=== PATIENT | male | born 2000 | race Caucasian/White ===

== ENCOUNTER 2021-05-17 19:08 | Emergency (ER) | payer OTHER, SELFPAY ==
--- NOTE | ~2021-05-17 | CT_ITS ---
EXAMINATION: CT orbit BI wo con EXAM DATE: 05/17/2021 21:33 INDICATION: Metal, in eye, dizziness, blurred vision. TECHNIQUE: Spiral CT orbit BI wo con was performed without contrast. Axial, coronal and sagittal im ages were reviewed. The dose-length product (DLP) for this examination was 199.48 mGy-cm. The expos ure was tailored according to patient size (auto mA exposure control), and iterative reconstruction ( ASIR) was used as additional dose reduction technique. There is no prior study for comparison. FINDINGS: There is swelling overlying the frontal bone. No radiopaque foreign bodies identified. Disc onjugate gaze, orbits otherwise unremarkable. Extraocular muscles are symmetric. There may be old chapo al bone fractures. Sinuses and mastoid air cells are well aerated. IMPRESSION: Frontal scalp swelling. No foreign body or retrobulbar inflammation. Reviewed, dictated and finalized at location A. ON SITE IMPRESSION: Frontal scalp swelling. No foreign body or retrobulbar inflammatio n.
[2021-05-17 19:11] VITALS: BP 148/58; PULSE 81; RESP 20; TEMP 36.9; O2SAT 99
--- NOTE | 2021-05-17 20:38 | ECG_ITS ---
Measurements Intervals [place] Rate: 66 P: 33 TX: 147 QRS: 61 QRSD: 90 T: 44 QT: 413 QTc: 434 Interpretive Statements SINUS RHYTHM MINIMAL Q WAVES- ANTEROLATERAL LEADS BORDERLINE ECG Electronically Signed On 05-18-2021 7:51:04 CRYPTOLOGIC TECHNICIAN OPERATOR/ANALYST by Blayne Warner D.O.
--- NOTE | 2021-05-17 21:01 | ED.EYEPROB ---
HPI - Eye Problem General Chief complaint: Eye Problems Stated complaint: Eye pain Time Seen by Provider: 05/17/21 20:27 Source: patient and RN notes reviewed Mode of arrival: ambulatory Limitations: no limitations History of Present Illness HPI Narrative: This is a 20 year old male who presents for evaluation of left eye pain, headache, facial swelling . Patient reports 2 days ago he was grinding tile and metal with out eye protection. He felt like he has something in his left eye but he thought it would come out on its own. He noticed more blurred vision, headache with nausea. He also states he has felt off and may have passed out while driving. He does not wear glasses or contacts. He is unsure of his last tetanus. He has light sensitivity. He also noticed today he has a wound to his left forehead with left forehead swelling and tenderness. Related Data Allergies Allergy/AdvReac Type Severity Reaction Status Date / Time azithromycin [From Zithromax] Allergy Unknown Unknown Verified 05/17/21 19:15 Review of Systems Review of Systems: All systems reviewed & are unremarkable except as noted in HPI and below PMFSH Past Medical History Medical History (Updated 05/18/21 @ 00:27 by Leandra Mandel MD) Patient denies medical problems Surgical History Surgical History (Updated 05/17/21 @ 21:07 by Leandra Mandel MD) No pertinent past surgical history Social History Social History (Updated 05/17/21 @ 21:07 by Leandra Mandel MD) Smoking status: Never smoker Exam Const: General: no acute distress and alert Orientation/consciousness: patient oriented x3 HENMT: Head: normocephalic Face and sinus: face symmetric and other (left forehead swelling with redness) Mouth: Yes Normal oral and palatal mucosa present, Yes lip normal, Yes oropharynx normal and Yes moist mucous membranes Throat: posterior oropharynx normal, tonsils normal and uvula midline Eyes: Eyelids: eyelid abnormality Conjunctivae: conjunctival abnormality left conjunctival injection Cornea: corneas abnormal on the left foreign body (just above pupil metal) Pupils: Equal, round and reactive pupils present EOM: EOMs intact bilaterally Other: right eye visual acuity 20/20 , left eye 20/25 right intraocular pressure 7 , left eye 10 Resp: Effort & Inspection: normal respiratory effort and no retractions Auscultation: clear to auscultation bilaterally Cardio: Rate: regular rate Rhythm: regular rhythm Heart sounds: no murmurs GI: GI Palp: Yes Soft to palpation, No Tenderness to palpation present (GI) and No Guarding due to palpation present (GI) Auscultation: normal bowel sounds Skin: Other: left forehead with punctate wound with surround swelling and erythema Neuro: General: patient oriented x3, moves all extremities and CN's II-XI intact bilaterally Gait exam (Neuro): Normal gait present Extrem: General: normal to inspection and no pedal edema Psych: Mental Status: mental status grossly normal Affect: normal affect Course Reevaluation(s) Reevaluation #1: I Discussed with patient that I did not see any metal or FB in eye. He does have rust ring. I stressed importance of treatment of this and follow up . He is going to follow up with [facility] ophthalmology in clinic. He was given return precautions. Date: 05/18/21 Time: 00:16 Consultations Consultation #1: I Spoke with Dr. Jarod Bustillo of ophthalmology at [facility]. He states to attempt to remove rust ring, check intraocular pressure, corneal leak. erythromycin and cipro drops Date: 05/17/21 Time: 22:26 Date: 05/18/21 Time: 00:18 Vital Signs Vital signs: Vital Signs Temperature 98.5 F 05/17/21 19:11 Pulse Rate 81 05/17/21 19:11 Respiratory Rate 20 05/17/21 19:11 Blood Pressure 148/58 H 05/17/21 19:11 Pulse Oximetry 99 05/17/21 19:11 Temperature 98.5 F 05/17/21 19:11 Pulse Rate 70 05/18/21 00:51 Respiratory Rate 16 05/18/21 00:51 Blood Pressure
[2021-05-17] MEDS: TETANUS,DIPHTHERIA,AC PERTUSSIS ADULT (0.5 ML) BOOSTRIX IM (21:14)
[2021-05-17] MEDS: ONDANSETRON INJ 4 MG/2 ML VIAL IV PUSH (21:14)
[2021-05-17] MEDS: SODIUM CHLORIDE 0.9% IV 1,000 ML 999 ML IV CONT (21:14)
[2021-05-17 21:35] LABS: Basophils Absolute Auto 0.1 K/mm3 (0.0-0.1); Basophils Percent Auto 0.6 % (0.2-1.2); Eosinophils Absolute Auto 0.4 K/mm3 (0-0.3); Eosinophils Percent Auto 3.3 % (0-4.4); Hematocrit 44.7 % (42.0-52.0); Hemoglobin 15.4 g/dL (14.0-18.0); Immature Granulocyte Absolute 0.03 K/mm3 (0.00-0.031); Immature Granulocyte Percent A 0.3 % (0-0.5); Lymphocytes Absolute Auto 2.29 K/mm3 (0.9-3.2); Lymphocytes Percent Auto 21.3 % (18.3-44.2); Mean Corpuscular HGB Conc 34.5 g/dl (32-36); Mean Corpuscular Hemoglobin 29.8 pg (26-34); Mean Corpuscular Volume 86.5 fl (80-100); Mean Platelet Volume 10.5 fl (7.4-10.4); Monocytes Absolute Auto 1.1 K/mm3 (0.1-0.6); Monocytes Percent Auto 9.9 % (2.6-8.5); Neutrophils Percent Auto 64.6 % (45.5-73.1); Platelet Count Result 290 k/mm3 (150-375); Red Blood Count 5.17 M/mm3 (4.6-6.20); Red Cell Distribution Width 12.8 % (11.5-14.5); White Blood Count 10.8 K/mm3 (4.5-10.0)
[2021-05-17 21:47] LABS: Alanine Aminotransferase 19 U/L (4-50); Albumin Level 4.9 g/dL (3.5-5.1); Alkaline Phosphatase 71 U/L (38-126); Anion Gap 9 mmol/L (8-16); Aspartate Amino Transferase 25 U/L (17-59); Bilirubin,Total 0.6 mg/dL (0.2-1.3); Blood Urea Nitrogen 15 mg/dL (9-20); Calcium 9.8 mg/dL (8.4-10.2); Carbon Dioxide 26 mmol/L (22-30); Chloride 103 mmol/L (98-107); Estimated CRCL calculation 119 ml/min; Estimated Glomerular Filt Rate > 60; Glucose 96 mg/dL (65-110); Sodium 138 mmol/L (137-145)
[2021-05-17] MEDS: CEPHALEXIN 500 MG CAPSULE PO (22:16)
[2021-05-17] MEDS: CIPROFLOXACIN HCL 0.3% OP SOLN 2.5 ML BTL 2 DROP LEFT EYE (22:58)
[2021-05-18] MEDS: POLYMYXIN/TRIMETHOPRIM OPHTH 10 ML DROPS 1 DROP LEFT EYE (00:47)
[2021-05-18 00:51] VITALS: BP 138/95; PULSE 70; RESP 16; O2SAT 100
== END 2021-05-18 00:52 | disposition home or self-care (01) ==
PROVIDERS: Emergency Provider General Practice; PCP Pediatrics Adolescent Medicine
DX: L03.211 Cellulitis of face (principal); T15.02XA Foreign body in cornea, left eye, initial encounter; Z23 Encounter for immunization
CPT/HCPCS: 36415; 70480; 80053; 85025; 90471; 90715; 93005; 96361; 96374; 99284; A9270; J2405; J7030